=== PATIENT | male | born 1965 | race Caucasian/White ===

== ENCOUNTER 2022-10-24 13:40 | Day surgery (SDC) | payer OTHER, SELFPAY ==
--- NOTE | 2022-10-24 | PATH_ITS ---
[facility] Accession Number: [id number] No. of containers..03 Tissue . 01 Material submitted: . PART A: gastrointestinal site - GASTRIC BIOPSY PART B: esophagus - DISTAL ESOPHAGEAL BIOPSY PART C: colon - 40 CM COLON POLYP . 01 Clinical history: . A: R/O H.PYLORI . 01 Diagnosis: A. Stomach, Biopsy: Gastric antral-type mucosa with mild reactive/chemical gastropathy. Gastric corpus-type mucosa with changes suggestive of proton-pump inhibitor therapy. Negative for intestinal metaplasia and dysplasia. No Helicobacter pylori organisms seen on immunohistochemistry. . B. Esophagus, Distal, Biopsy: Gastric mucosa with intestinal metaplasia (multifocal), with acute and chronic inflammation; see comment. Hyperplastic squamous mucosa with features consistent with reflux disease. Negative for dysplasia and malignancy. . C. Colon Polyp, Polypectomy: Tubular adenoma. . Comment: Endoscopic correlation is necessary to determine whether the intestinal metaplasia seen in the distal esophagus biopsy (part B), represents Orta mucosa or intestinal metaplasia of the gastric cardia. [facility] 10/30/2022 1533 Local . 01 Electronically signed: . Meagan Wilson MD, Pathologist NPI- [id number] . 01 Gross description: . Part A: GASTRIC BIOPSY: Received in formalin are 2 fragment(s) of lim, soft tissue measuring 0.1 x 0.1 x 0.1 cm to 0.3 x 0.3 x 0.2 cm submitted entirely in 1 cassette(s) Part B: DISTAL ESOPHAGEAL BIOPSY: Received in formalin are 3 fragment(s) of lim, soft tissue measuring 0.1 x 0.1 x 0.1 cm to 0.2 x 0.2 x 0.2 cm submitted entirely in 1 cassette(s) Part C: 40 CM COLON POLYP: Received in formalin is 1 fragment(s) of lim, soft tissue measuring 0.6 x 0.6 x 0.5 cm submitted entirely in 1 cassette(s) /ABRAHAN 10/25/2022 2236 Local . 01 Microscopic: . A. An immunohistochemical stain was performed to evaluate for Helicobacter organisms and is negative. The control stain showed appropriate reactivity. . * This test was developed and its performance characteristics determined by [facility]. It has not been cleared or approved by the U.S. Food and Drug Administration. The FDA has determined that such clearance or approval is not necessary. This test is used for clinical purposes. It should not be regarded as investigational or for research. . 01 Pathologist provided ICD-10: K21.9 . 01 CPT . 834178, 354932, 197389, X77250 Specimen Comment: A courtesy copy of this report has been sent to [phone] Performed at: 01 [facility] [address] [place] [address], [place], [place] [id number] MD Layton Quevedo MD Phone: [phone]
[2022-10-24] MEDS: LACTATED RINGERS 1,000 ML 100 ML IV (13:59)
[2022-10-24 14:09] VITALS: BP 134/89; PULSE 119; RESP 16; TEMP 36.6; O2SAT 96; BMI 28.8
--- NOTE | 2022-10-24 14:19 | PM.HP.1 ---
History of Present Illness History of Present Illness Chief complaint: EGD & Colonoscopy w/poss bx's Narrative: GE reflux and ?sour stomach? with possible history of ?early Orta's?. Need for colorectal cancer screening PFSH Social History household members: none Smoking Status: Current every day smoker alcohol intake: current Meds Home Medications and Allergies Home Medications Medication Instructions Recorded Confirmed Type Anoro Ellipta 62.5 mcg inhalation DAILY 10/24/22 10/24/22 History albuterol sulfate 90 mcg inhalation PRN PRN Wheezing 10/24/22 10/24/22 History hydrocodone 10 mg-acetaminophen 1 tab PO Q4-6H PRN Pain (Scale 10/24/22 10/24/22 History 325 mg tablet Score 7-10) omeprazole 20 mg tablet,delayed 20 mg PO DAILY 10/24/22 10/24/22 History release rosuvastatin 10 mg PO DAILY 10/24/22 10/24/22 History Allergies Allergy/AdvReac Type Severity Reaction Status Date / Time atorvastatin AdvReac Intermediate Muscle Pain Verified 10/24/22 13:32 iodine AdvReac Intermediate Rash Verified 10/24/22 13:32 Exam Vital Signs (past 8 hours): - 10/24/22 14:09 Temperature 97.8 F Pulse Rate 119 H Respiratory Rate 16 Blood Pressure 134/89 Pulse Oximetry 96 Oxygen Delivery Method Room Air Oxygen Delivery Method Room Air Narrative Exam Narrative: Oropharynx free of lesions Chest clear to auscultation percussion Cardiac exam reveals no S3 or murmur Assessment & Plan Assessment & Plan narrative: GE reflux 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 Rule out Orta's esophagus. Need for colorectal cancer screening. Risks benefits and alternatives of both EGD and colonoscopy if been explained. Further recommendations will follow the results of the studies
--- NOTE | 2022-10-24 14:20 | PM.OP.EC ---
Operative Date/Time/Diagnoses Date of procedure: 10/24/22 Pre-op diagnosis: See indication Procedure & Clinicians Study performed: EGD and colonoscopy Indications: GE reflux with possible Orta's and need for colorectal cancer screening Surgeon: Gomez Elliott Procedure Notes Procedure in detail: After informed consent was obtained the patient was placed in left lateral decubitus position. The video upper scope was placed into the oropharynx and with the patient's help swelled into the esophagus. The esophagus stomach and duodenum were carefully examined. On withdrawal retroflexed view the GE junction was performed. The scope was removed. The patient tolerated procedure well. The patient was then turned to the colonoscope substituted. This was introduced in the rectum slowly advanced to the cecum. On slow withdrawal mucosa was carefully examined. The scope was removed. The patient tolerated procedure well. Blood loss none Complications none Sedation mac Findings EGD 1. Normal proximal and mid esophagus 2. From 39-40 cm and possibly 1 more cm was ever irregularity above the level of the GE folds. Biopsies were taken to rule out Orta's esophagus. 3. Intense inflammation the stomach with significant melenic blood flecks and colitis and erythema. Biopsies taken to rule out Helicobacter 4. Normal duodenal bulb and sweep Colonoscopy 1. Scattered sigmoid diverticulosis 2. 1 cm sessile polyp at 40 cm cold snared and removed completely 3. Otherwise negative colonoscopy to cecum Will follow up with biopsy reports and determine the surveillance interval accordingly.
[2022-10-24 15:00] VITALS: BP 105/72; PULSE 95; RESP 14; TEMP 36.4; O2SAT 92
[2022-10-24 15:05] VITALS: BP 105/76; PULSE 96; RESP 18; TEMP 36.4; O2SAT 92
[2022-10-24 15:10] VITALS: BP 108/72; PULSE 93; RESP 16; O2SAT 92
[2022-10-24 15:15] VITALS: BP 125/84; PULSE 96; RESP 16; O2SAT 96
[2022-10-24 15:20] VITALS: BP 126/80; PULSE 95; RESP 18; O2SAT 96
== END 2022-10-24 15:30 | disposition home or self-care (01) ==
PROVIDERS: PCP Nurse Practitioner; Referring Provider Internal Medicine Gastroenterology; Visit Provider Internal Medicine Gastroenterology
PROC: 0DJ08ZZ Inspection of Upper Intestinal Tract, Via Natural or Artificial Opening Endoscopic (ICD-10-PCS; CPT 43235; principal; 2022-10-24 14:30)
PROC: 0DJD8ZZ Inspection of Lower Intestinal Tract, Via Natural or Artificial Opening Endoscopic (ICD-10-PCS; CPT 45378; 2022-10-24 14:30)
DX: Z12.11 Encounter for screening for malignant neoplasm of colon (principal); K21.9 Gastro-esophageal reflux disease without esophagitis; K31.9 Disease of stomach and duodenum, unspecified; K29.00 Acute gastritis without bleeding; K29.50 Unspecified chronic gastritis without bleeding; K57.30 Diverticulosis of large intestine without perforation or abscess without bleeding; D12.6 Benign neoplasm of colon, unspecified
CPT/HCPCS: 45385; 43239; J2704